=== PATIENT | male | born 2000 | race Two or more races ===

== ENCOUNTER 2022-08-02 21:00 | Emergency (ER) | payer OTHER ==
[~2022-08-02] VITALS: Ht 175.3 cm; Wt 71.7 kg
[2022-08-02] MEDS ORDERED: ADVIL LIQUI-GE200 MG PO (23:08)
[2022-08-02] MEDS ORDERED: TYLENOL ARTHRI650 MG PO (23:08)
[2022-08-02] MEDS ORDERED: METAXALONE800 MG PO (23:08)
== END 2022-08-03 00:09 | disposition home or self-care (01) ==
LOC: ER 21:00 → EMR PED 21:06 → ER 21:06 → EMR PED 08-03 00:09
DX: S13.4XXA Sprain of ligaments of cervical spine, initial encounter (principal); V43.52XA Car driver injured in collision with other type car in traffic accident, initial encounter; Y93.89 Activity, other specified; Y92.89 Other specified places as the place of occurrence of the external cause